=== PATIENT | male | born 1965 | race Caucasian/White ===

== ENCOUNTER 2017-08-04 08:41 | Day surgery (SDC) | payer BC ==
[~2017-08-04] VITALS: Ht 162.6 cm; Wt 81.9 kg
[2017-08-04 09:24] VITALS: BP 141/85
[2017-08-04] MEDS ORDERED: NONE PER PT (09:24)
[2017-08-04] MEDS ORDERED: LACTATED RINGERS 1,000 ML IV SCH (09:32)
[2017-08-04] MEDS ORDERED: FENTANYL PF 100 MCG/2ML ONE (09:43)
[2017-08-04] MEDS ORDERED: MIDAZOLAM 1 MG/ML, 2ML ONE (09:43)
[2017-08-04 09:59] LABS: MICROSCOPIC NOT IND
[2017-08-04] MEDS ORDERED: GABAPENTIN 300 MG CAPSULE PO ONE (10:00)
[2017-08-04] MEDS ORDERED: ACETAMINOPHEN 500 MG TABLET PO ONE (10:00)
[2017-08-04] MEDS ORDERED: OXYcodone IR 5MG TABLET PO ONE (10:00)
[2017-08-04] MEDS ORDERED: FAMOTIDINE 20 MG TABLET PO ONE (10:00)
[2017-08-04 10:02] LABS: CULTURE INDICATED? NO
[2017-08-04] MEDS ORDERED: BUPIVACAINE/PF 0.5% ONE (11:15)
[2017-08-04] MEDS ORDERED: EPINEPHRINE 1 MG/ML, 1ML ONE (11:15)
[2017-08-04] MEDS ORDERED: ONDANSETRON 2MG/ML, 2ML ONE (11:30)
[2017-08-04] MEDS ORDERED: DEXAMETHASONE 4 MG/ML, 1ML ONE (11:30)
[2017-08-04] MEDS ORDERED: PROPOFOL 10 MG/ML, 20ML ONE (11:30)
[2017-08-04] MEDS ORDERED: CEFAZOLIN 1,000 MG ONE (11:30)
[2017-08-04] MEDS ORDERED: OXYcodone 5 MG/5 ML ORAL.SOL UDC PO PRN (12:00)
[2017-08-04] MEDS ORDERED: KETOROLAC 30 MG/1 ML IV PRN (12:00)
[2017-08-04] MEDS ORDERED: HYDROcodone/APAP 7.5-325MG/15ML UDC PO PRN (12:00)
[2017-08-04] MEDS ORDERED: PROMETHAZINE 12.5 MG SUPP PR PRN (12:00)
[2017-08-04] MEDS ORDERED: EPHEDRINE 50 MG/ML, 1ML IVPush PRN (12:00)
[2017-08-04] MEDS ORDERED: ALBUTEROL SULFATE 2.5 MG/3 ML NPPB PRN (12:00)
[2017-08-04] MEDS ORDERED: FENTANYL PF 100 MCG/2ML IV PRN (12:00)
[2017-08-04] MEDS ORDERED: PROMETHAZINE 25 MG/ML, 1ML IV PRN (12:00)
[2017-08-04] MEDS ORDERED: MIDAZOLAM 1 MG/ML, 2ML IV PRN (12:00)
[2017-08-04] MEDS ORDERED: ONDANSETRON 2MG/ML, 2ML IVPush PRN (12:00)
[2017-08-04] MEDS ORDERED: MEPERIDINE/PF 25MG/0.5ML IVPush PRN (12:00)
[2017-08-04] MEDS ORDERED: morphine SULFATE 10 MG/ML, 1ML IV PRN (12:00)
[2017-08-04] MEDS ORDERED: DIAZEPAM 5 MG/ML, 2ML IVPush PRN (12:00)
== END 2017-08-04 15:15 ==
LOC: OUT 08:41
PROVIDERS: ATTEND Student in an Organized Health Care Education/Training Program
DX: N43.41 Spermatocele of epididymis, single (principal)
CPT/HCPCS: 54840; 81003; 88304; J0171; J0690; J1100; J2250; J2405; J2704; J3010; J3490; J7120